=== PATIENT | female | born 1995 | race Caucasian/White ===

== ENCOUNTER 2016-09-07 01:46 | Emergency (ER) | payer BC ==
[~2016-09-07] VITALS: Ht 149.9 cm; Wt 54.5 kg
[2016-09-07 01:50] VITALS: Ht 149.9 cm; Wt 54.5 kg
--- NOTE | 2016-09-07 03:00 | ERA ---
ER Documentation Chief Complaint Date/Time DATE: 09/07/16 TIME: 03:00 Chief Complaint states blood sugar at home 596 about 30 minutes ago HPI The patient is a 21-year-old female, presenting to the ER because of high blood glucose above 596 at home about 30 minutes prior to arrival. She is taking metformin 500 mg twice daily since April. She complains of minimal dizziness , denies headache, neck pain, chest pain, dyspnea. She complains of nausea but no vomiting, denies diarrhea, constipation, minimal urinary discomfort. She does not smoke, drinks socially Past medical history: Diabetes mellitus Past surgical history: None ROS All systems reviewed and are negative except as per history of present illness. Medications Home Meds Reported Medications Metformin* (Glucophage*) 500 Mg Tab, 500 MG PO WITH BREAKFAST DINNE, #30 TAB 09/07/16 Allergies Allergies: Coded Allergies: No Known Drug Allergies (Verified Allergy, Unknown, 09/07/16) PMhx/Soc History of Surgery: No Anesthesia Reaction: No Hx Neurological Disorder: No Hx Respiratory Disorders: No Hx Cardiac Disorders: No Hx Alcohol Use: No Hx Substance Use: No Hx Tobacco Use: No Smoking Status: Never smoker Physical Exam Vitals Vital Signs Date Time Temp Pulse Resp B/P Pulse Ox O2 Delivery O2 Flow Rate FiO2 09/07/16 06:39 98.6 65 20 102/73 100 Room Air 09/07/16 06:00 61 20 104/78 100 Room Air 09/07/16 01:50 98.7 84 20 125/76 99 Physical Exam Const: No acute distress. Head: Atraumatic. Eyes: Normal Conjunctiva. ENT: Normal External Ears, Nose and Mouth. Neck: Full range of motion. No meningismus. Resp: Clear to auscultation bilaterally. Cardio: Regular rate and rhythm. Abd: Soft, non distended, normal bowel sounds, non tender. Skin: No petechiae or rashes. Back: No midline or flank tenderness. Ext: No cyanosis, or edema. Neur: Awake and alert. No focal deficit Psych: Normal Mood and Affect. Result Diagram: 09/07/16 0320 09/07/16 0320 Results 24 hrs Laboratory Tests Test 09/07/16 01:56 09/07/16 03:20 09/07/16 03:32 09/07/16 03:34 Bedside Glucose 366mg/dL 333mg/dL White Blood Count 10.110^3/ul Red Blood Count 4.8210^6/ul Hemoglobin 14.9g/dl Hematocrit 43.7% Mean Corpuscular Volume 90.7fl Mean Corpuscular Hemoglobin 30.9pg Mean Corpuscular Hemoglobin Concent 34.1g/dl Red Cell Distribution Width 11.9% Platelet Count 66069^3/UL Mean Platelet Volume 10.5fl Neutrophils % 64.0% Lymphocytes % 27.1% Monocytes % 7.2% Eosinophils % 1.0% Basophils % 0.3% Nucleated Red Blood Cells % 0.0/100WBC Neutrophils # 6.510^3/ul Lymphocytes # 2.710^3/ul Monocytes # 0.710^3/ul Eosinophils # 0.110^3/ul Basophils # 0.010^3/ul Nucleated Red Blood Cells # 0.010^3/ul Prothrombin Time 12.2Sec Prothrombin Time Ratio 1.0 INR International Normalized Ratio 0.91 Activated Partial Thromboplast Time 25.8Sec Sodium Level 134mmol/L Potassium Level 4.2mmol/L Chloride Level 97mmol/L Carbon Dioxide Level 27mmol/L Anion Gap 14 Blood Urea Nitrogen 13mg/dl Creatinine 0.82mg/dl Glucose Level 383mg/dl Lactic Acid Level 1.2mmol/L Calcium Level 10.3mg/dl Phosphorus Level 5.0mg/dl Magnesium Level 1.7mg/dl Total Bilirubin 0.2mg/dl Direct Bilirubin 0.00mg/dl Indirect Bilirubin 0.2mg/dl Aspartate Amino Transf (AST/SGOT) 18IU/L Alanine Aminotransferase (ALT/SGPT) 31IU/L Alkaline Phosphatase 83IU/L Total Protein 7.9g/dl Albumin 4.9g/dl Globulin 3.00g/dl Albumin/Globulin Ratio 1.63 Lipase 92U/L Bedside Urine pH (LAB) 7.0 Bedside Urine Protein (LAB) Negative Bedside Urine Glucose (UA) 0.50% Bedside Urine Ketones (LAB) Negative Bedside Urine Blood 2+ Bedside Urine Nitrite (LAB) Negative Bedside Urine Leukocyte Esterase (L Negative Test 09/07/16 05:21 Bedside Glucose 248mg/dL Current Medications Medications (Trade) Dose Ordered Sig/Zak Route PRN Reason Start Time Stop Time Status Last Admin Dose Admin Sodium Chloride (NS) 1,690 ml @ 1,690 mls/hr BOLUS X1 ONCE IV 09/07/16 03:30 09/07/16 04:29 DC 09/07/16 03:31 Procedures/MDM MEDICAL MAKING DECISION: The patient is a 31-year-old female, presenting with acute diabetic hyperglycemia. She was treated with normal saline 30 mL/kg IV with good response, glucose improved. The differential diagnoses considered include but are not limited to HHS, DKA, dehydration, medical noncompliance, UTI, pneumonia Departure Diagnosis: Primary Impression: Diabetes mellitus with hyperglycemia Condition: Good Comments I discussed the findings with the patient. I advised the patient to follow-up with the primary physician in about 1-2 days, sooner if needed and return if any concern. RASHMI LONDON MD Sep 07, 2016 03:00
[2016-09-07 03:29] LABS: URINE BLOOD (Dip) POC 2+ (NEGATIVE)
[2016-09-07] MEDS ORDERED: SOD CHLORIDE 0.9% 1,690 ML IV ONE (03:30)
[2016-09-07] MEDS ORDERED: METF500T4 PO (03:41)
[2016-09-07 04:09] LABS: BASOPHILS % 0.3 % (0.0-2.0); EOSINOPHILS # 0.1 10^3/ul (0.0-0.5); HEMATOCRIT 43.7 % (37.0-47.0); HEMOGLOBIN 14.9 g/dl (12.0-16.0); LYMPHOCYTES # 2.7 10^3/ul (0.8-2.9); LYMPHOCYTES % 27.1 % (15.0-51.0); MEAN CORPUSCULAR HEMOGLOBIN 30.9 pg (29.0-33.0); MEAN CORPUSCULAR HGB CONC 34.1 g/dl (32.0-37.0); MEAN CORPUSCULAR VOLUME 90.7 fl (82.0-101.0); MEAN PLATELET VOLUME 10.5 fl (7.4-10.4); MONOCYTE # 0.7 10^3/ul (0.3-0.9); MONOCYTES % 7.2 % (0.0-11.0); NEUTROPHIL # 6.5 10^3/ul (1.6-7.5); PLATELET COUNT 349 10^3/UL (140-415); RED BLOOD COUNT 4.82 10^6/ul (4.20-5.40); RED CELL DISTRIBUTION WIDTH 11.9 % (11.5-14.5); WHITE BLOOD COUNT 10.1 10^3/ul (4.8-10.8)
[2016-09-07 04:11] LABS: ALBUMIN 4.9 g/dl (3.3-4.9); ALBUMIN/GLOBULIN RATIO 1.63; BILIRUBIN,INDIRECT 0.2 mg/dl (0-1.1); BILIRUBIN,TOTAL 0.2 mg/dl (0.2-1.3); CALCIUM 10.3 mg/dl (8.4-10.2); CREATININE 0.82 mg/dl (0.44-1.00); MAGNESIUM 1.7 mg/dl (1.7-2.5); POTASSIUM 4.2 mmol/L (3.5-5.1); TOTAL PROTEIN 7.9 g/dl (6.1-8.1)
[2016-09-07 04:13] LABS: ADD SCAN DIFF NO; INR 0.91; PROTIME 12.2 Sec (12.2-14.2)
[2016-09-07 04:14] LABS: PARTIAL THROMBOPLASTIN TIME 25.8 Sec (25.0-35.0)
[2016-09-07 06:39] VITALS: BP 102/73; PULSE 65; RESP 20; TEMP 98.6
== END 2016-09-07 06:41 | disposition home or self-care (01) ==
LOC: E/R 01:46
DX: E11.65 Type 2 diabetes mellitus with hyperglycemia (principal); Z79.84 Long term (current) use of oral hypoglycemic drugs
CPT/HCPCS: 36415; 80053; 81003; 82962; 83605; 83690; 83735; 84100; 85025; 85610; 85730; 87040; 99284; J7030

== ENCOUNTER 2016-10-29 19:34 | Emergency (ER) | payer BC ==
[~2016-10-29] VITALS: Ht 157.5 cm; Wt 53.5 kg
[~2016-10-29 19:34] MED LIST: METF500T4 PO
[2016-10-29 19:45] VITALS: Ht 157.5 cm; Wt 53.5 kg
[2016-10-29] MEDS ORDERED: SOD CHLORIDE 0.9% 1,000 ML IV ONE (21:00)
[2016-10-29 21:02] LABS: URINE BLOOD (Dip) POC Negative (NEGATIVE)
[2016-10-29 21:15] LABS: BASOPHILS % 0.3 % (0.0-2.0); EOSINOPHILS # 0.1 10^3/ul (0.0-0.5); EOSINOPHILS % 1.2 % (0.0-7.0); HEMATOCRIT 42.4 % (37.0-47.0); HEMOGLOBIN 14.7 g/dl (12.0-16.0); LYMPHOCYTES # 3.7 10^3/ul (0.8-2.9); LYMPHOCYTES % 33.1 % (15.0-51.0); MEAN CORPUSCULAR HEMOGLOBIN 31.3 pg (29.0-33.0); MEAN CORPUSCULAR HGB CONC 34.7 g/dl (32.0-37.0); MEAN CORPUSCULAR VOLUME 90.4 fl (82.0-101.0); MEAN PLATELET VOLUME 10.2 fl (7.4-10.4); MONOCYTE # 0.7 10^3/ul (0.3-0.9); MONOCYTES % 6.4 % (0.0-11.0); NEUTROPHILS % 58.6 % (39.0-77.0); PLATELET COUNT 342 10^3/UL (140-415); RED BLOOD COUNT 4.69 10^6/ul (4.20-5.40); RED CELL DISTRIBUTION WIDTH 11.7 % (11.5-14.5); WHITE BLOOD COUNT 11.3 10^3/ul (4.8-10.8)
[2016-10-29 21:19] LABS: ADD UMIC NO; UR ASCORBIC ACID NEGATIVE (NEGATIVE); UR BILIRUBIN (Dip) NEGATIVE (NEGATIVE); UR BLOOD (Dip) NEGATIVE (NEGATIVE); UR CLARITY CLEAR (CLEAR); UR COLOR STRAW (YELLOW); UR GLUCOSE (Dip) 3+ mg/dL (NEGATIVE); UR KETONES (Dip) TRACE mg/dL (NEGATIVE); UR LEUKOCYTE ESTERASE (Dip) NEGATIVE Leu/ul (NEGATIVE); UR NITRITE (Dip) NEGATIVE (NEGATIVE); UR SPECIFIC GRAVITY (Dip) 1.037 (1.003-1.030); UR TOTAL PROTEIN (Dip) NEGATIVE (NEGATIVE); UR UROBILINOGEN (Dip) NEGATIVE (NEGATIVE)
--- NOTE | 2016-10-29 21:20 | ERD ---
ER Documentation Chief Complaint Date/Time DATE: 10/29/16 TIME: 21:19 Chief Complaint frequency of urination today, [id number] [id number] HPI 21-year-old female presents here in emergency department for complaints of urinary frequency, feeling thirsty, patient has elevated blood sugar home today , 400s, took her medication, glipizide tonight, her blood sugar denies 330 mg per DL, patient denies any abdominal pain. Patient had a vomiting episode after eating today. Patient denies any abdominal pain. Patient denies any flank pain. Patient denies any dysuria. Patient currently takes metformin and glipizide for her diabetes. ROS All systems reviewed and are negative except as per history of present illness. Medications Home Meds Reported Medications Metformin* (Glucophage*) 500 Mg Tab, 500 MG PO WITH BREAKFAST DINNE, #30 TAB 09/07/16 Allergies Allergies: Coded Allergies: No Known Drug Allergies (Verified Allergy, Unknown, 09/07/16) PMhx/Soc Medical and Surgical Hx: pt denies Surgical Hx History of Surgery: No Anesthesia Reaction: No Hx Neurological Disorder: No Hx Respiratory Disorders: No Hx Cardiac Disorders: No Hx Psychiatric Problems: No Hx Miscellaneous Medical Probl: Yes (diabetes type 2, ) Hx Alcohol Use: No Hx Substance Use: No Hx Tobacco Use: No Smoking Status: Never smoker FmHx Family History: No coronary disease, No diabetes, No other Physical Exam Vitals Vital Signs Date Time Temp Pulse Resp B/P Pulse Ox O2 Delivery O2 Flow Rate FiO2 10/29/16 19:45 98.7 86 20 121/88 100 Physical Exam GENERAL: The patient is well developed and appropriate for usual state of health, in no apparent distress. CHEST: Clear to auscultation bilaterally. There are no rales, wheezes or rhonchi. HEART: Regular rate and rhythm. No murmurs, clicks, rubs or gallops. No S3 or S4. ABDOMEN: Soft, nontender and nondistended. Good bowel sounds. No rebound or guarding. No gross peritonitis. No gross organomegaly or masses. No Blunt sign or McBurney point tenderness. BACK: No midline or flank tenderness. EXTREMITIES: Equal pulses bilaterally. There is no peripheral clubbing, cyanosis or edema. No focal swelling or erythema. Full range of motion. Grossly neurovascularly intact. NEURO: Alert and oriented. Cranial nerves 2-12 intact. Motor strength in all 4 extremities with 5/5 strength. Sensation grossly intact. Normal speech and gait. SKIN: There is no apparent rash or petechia. The skin is warm and dry. HEMATOLOGIC AND LYMPHATIC: There is no evidence of excessive bruising or lymphedema. No gross cervical, axillary, or inguinal lymphadenopathy. Result Diagram: 10/29/16205310/29/162053 Results 24 hrs Laboratory Tests Test 10/29/16 19:53 10/29/16 20:54 10/29/16 21:07 Bedside Glucose 330mg/dL White Blood Count 11.310^3/ul Red Blood Count 4.6910^6/ul Hemoglobin 14.7g/dl Hematocrit 42.4% Mean Corpuscular Volume 90.4fl Mean Corpuscular Hemoglobin 31.3pg Mean Corpuscular Hemoglobin Concent 34.7g/dl Red Cell Distribution Width 11.7% Platelet Count 77424^3/UL Mean Platelet Volume 10.2fl Neutrophils % 58.6% Lymphocytes % 33.1% Monocytes % 6.4% Eosinophils % 1.2% Basophils % 0.3% Nucleated Red Blood Cells % 0.0/100WBC Neutrophils # (Manual) 710^3/ul Lymphocytes # 3.710^3/ul Monocytes # 0.710^3/ul Eosinophils # 0.110^3/ul Basophils # 0.010^3/ul Nucleated Red Blood Cells # 0.010^3/ul Urine Color STRAW Urine Clarity CLEAR Urine pH 7.0 Urine Specific [place] 1.037 Urine Ketones TRACEmg/dL Urine Nitrite NEGATIVEmg/dL Urine Bilirubin NEGATIVEmg/dL Urine Urobilinogen NEGATIVEmg/dL Urine Leukocyte Esterase NEGATIVELeu/ul Urine Hemoglobin NEGATIVEmg/dL Urine Glucose 3+mg/dL Urine Total Protein NEGATIVEmg/dl Sodium Level 139mmol/L Potassium Level 3.8mmol/L Chloride Level 93mmol/L Carbon Dioxide Level 30mmol/L Anion Gap 20 Blood Urea Nitrogen 14mg/dl Creatinine 0.60mg/dl Glucose Level 290mg/dl Calcium Level 10.2mg/dl Total Bilirubin 0.1mg/dl Direct Bilirubin 0.00mg/dl Indirect Bilirubin 0.1mg/dl Aspartate Amino Transf (AST/SGOT) 16IU/L Alanine Aminotransferase (ALT/SGPT) 32IU/L Alkaline Phosphatase 78IU/L Total Protein 8.1g/dl Albumin 4.4g/dl Globulin 3.70g/dl Albumin/Globulin Ratio 1.18 Lipase 96U/L Bedside Urine pH (LAB) 7.0 Bedside Urine Protein (LAB) Negative Bedside Urine Glucose (UA) 0.50% Bedside Urine Ketones (LAB) Negative Bedside Urine Blood Negative Bedside Urine Nitrite (LAB) Negative Bedside Urine Leukocyte Esterase (L Negative Current Medications Medications (Trade) Dose Ordered Sig/Zak Route PRN Reason Start Time Stop Time Status Last Admin Dose Admin Sodium Chloride (NS) 1,000 ml @ 1,000 mls/hr Q1H ONCE IV 10/29/16 21:00 10/29/16 21:59 DC 10/29/16 21:06 Normal saline IV bolus was given here in emergency department for rehydration, patient tolerated IV fluids. Procedures/MDM Medical decision making: Patient symptoms was likely is consistent with hyperglycemia. At this time, no symptoms of diabetic ketoacidosis, hyperosmolar hyper ketotic state. No symptoms of any systemic infection. No symptoms of sepsis. No urinary tract infection noted. Patient's diabetic symptoms have stabilized here in the emergency department and appear appropriate for outpatient management.No evidence at this time of diabetic ketoacidosis, hyperosmolar syndrome, or severe systemic infection. Disposition: Home. Stable. She was advised to continue taking her diabetic medications. Patient was advised to follow-up with primary care doctor in 1-2 days for possible adjustment of her diabetic medications, currently on metformin and glipizide. Patient was advised to return to emergency department for severe vomiting, abdominal pain, uncontrolled blood sugars. Otherwise, patient was advised to follow-up with primary care doctor in 1-2 days Departure Diagnosis: Primary Impression: Diabetes mellitus with hyperglycemia Diabetes mellitus type: type 2 Diabetes mellitus custodial insulin use: without custodial use Qualified Code: E11.65 - Type 2 diabetes mellitus with hyperglycemia, without long-term current use of insulin Condition: Stable Patient Instructions: Diabetic Hyperglycemia Additional Instructions: Follow-up with primary care doctor in 1-2 days for adjustment of diabetic medications. TRINY SHIRLEY NP Oct 29, 2016 21:20
[2016-10-29 21:44] LABS: ALBUMIN 4.4 g/dl (3.3-4.9); ALBUMIN/GLOBULIN RATIO 1.18; BILIRUBIN,INDIRECT 0.1 mg/dl (0-1.1); BILIRUBIN,TOTAL 0.1 mg/dl (0.2-1.3); CALCIUM 10.2 mg/dl (8.4-10.2); CREATININE 0.6 mg/dl (0.44-1.00); POTASSIUM 3.8 mmol/L (3.5-5.1); TOTAL PROTEIN 8.1 g/dl (6.1-8.1)
[2016-10-29 22:08] VITALS: BP 115/76; PULSE 74; RESP 14; TEMP 97.8
== END 2016-10-29 22:26 | disposition home or self-care (01) ==
LOC: FTE 19:34
DX: E11.65 Type 2 diabetes mellitus with hyperglycemia (principal); Z79.84 Long term (current) use of oral hypoglycemic drugs
CPT/HCPCS: 36415; 80053; 81003; 82962; 83690; 85025; 99284; J7030

== ENCOUNTER 2017-01-24 01:52 | Emergency (ER) | payer BC ==
[~2017-01-24] VITALS: Ht 149.9 cm; Wt 55.0 kg
[~2017-01-24 01:52] MED LIST changes: +GLIP-95 PO; +GLIP5TAB13 PO; +METF500T PO
[2017-01-24 01:59] VITALS: Ht 149.9 cm; Wt 55.0 kg
--- NOTE | 2017-01-24 02:17 | ERD ---
ER Documentation Chief Complaint Chief Complaint c/o elevated blood sugar. HPI The patient is a 21-year-old female, presenting to the ER because of high blood glucose at home, it was read high on the glucometer. She has presented to the ER multiple times for similar symptoms, she complains of frequent urination, denies fever, chills, syncope, near syncope, neck pain, chest pain, abdominal pain, vomiting. She does not smoke, does illicit drug, drinks socially Past medical history: Diabetes mellitus Past surgical history: None ROS All systems reviewed and are negative except as per history of present illness. Medications Home Meds Reported Medications Metformin* (Glucophage*) 1,000 Mg Tablet, 1000 MG PO WITH BREAKFAST LUNCH, #30 TAB 01/24/17 Glipizide* (Glucotrol*) 5 Mg Tablet, 5 MG PO QID, TAB 01/24/17 Discontinued Reported Medications Glipizide* (Glipizide*) 5 Mg Tablet, 5 MG PO QID, TAB 11/26/16 Metformin* (Glucophage*) 500 Mg Tab, 500 MG PO WITH BREAKFAST DINNE, #30 TAB 09/07/16 Discontinued Scripts Metformin Hcl (Glucophage) 500 Mg Tablet, 500 MG PO WITH BREAKFAST DINNE, #30 TAB Prov:FELIPE ASLVADOR MD 11/26/16 Glipizide* (Glipizide*) 10 Mg Tablet, 10 MG PO BID, #14 TAB Prov:FELIPE SALVADOR MD 11/26/16 Allergies Allergies: Coded Allergies: No Known Drug Allergies (Unverified Allergy, Unknown, 01/24/17) PMhx/Soc History of Surgery: No Anesthesia Reaction: No Hx Neurological Disorder: No Hx Respiratory Disorders: No Hx Cardiac Disorders: No Hx Psychiatric Problems: No Hx Miscellaneous Medical Probl: Yes (diabetes type 2, ) Hx Alcohol Use: No Hx Substance Use: No Hx Tobacco Use: No Physical Exam Vitals Vital Signs Date Time Temp Pulse Resp B/P Pulse Ox O2 Delivery O2 Flow Rate FiO2 01/24/17 01:59 98.8 88 18 114/79 98 Physical Exam Const: No acute distress. Head: Atraumatic. Eyes: Normal Conjunctiva. ENT: Normal External Ears, Nose and Mouth. Neck: Full range of motion. No meningismus. Resp: Clear to auscultation bilaterally. Cardio: Regular rate and rhythm. Abd: Soft, non distended, normal bowel sounds, non tender. Skin: No petechiae or rashes. Back: No midline or flank tenderness. Ext: No cyanosis, or edema. Neur: Awake and alert. No focal deficit Psych: Normal Mood and Affect. Result Diagram: 01/24/17 0230 01/24/17 0230 Results 24 hrs Laboratory Tests Test 01/24/17 02:18 01/24/17 02:24 01/24/17 02:30 01/24/17 02:32 Bedside Urine pH (LAB) 5.5 Bedside Urine Protein (LAB) Negative Bedside Urine Glucose (UA) 0.50% Bedside Urine Ketones (LAB) 2+ Bedside Urine Blood Negative Bedside Urine Nitrite (LAB) Negative Bedside Urine Leukocyte Esterase (L Negative Blood Gas Specimen Source Blood arterial Arterial Blood Date Drawn 01/24/2017 2:30:26 AM Arterial Blood pH (Temp corrected) 7.373 Arterial Blood pCO2 (Temp correct) 42.1mmhg Arterial Blood pO2 (Temp corrected) 77.7mmHG Arterial Blood HCO3 24.0mmol/L Arterial Blood Base Excess -1.3mmol/L Arterial Blood Oxygen Saturation 94.8mmHG Babar Test ACCEPTAB Arterial Blood Gas Puncture Site Left Radial Arterial Blood Carboxyhemoglobin 0.3% Arterial Blood Methemoglobin 0.2% Blood Gas A-a O2 Differential 21.6mmHg Oxyhemoglobin Percent 94.3% Total Hemoglobin 13.7g/dl Blood Gas Temperature 37.0C Blood Gas Modality ROOM AIR FiO2 21.0% Blood Gas Notified Whom UP Blood Gas Notified Time 01/24/2017 2:47:47 AM White Blood Count 11.210^3/ul Red Blood Count 4.3110^6/ul Hemoglobin 13.7g/dl Hematocrit 38.8% Mean Corpuscular Volume 90.0fl Mean Corpuscular Hemoglobin 31.8pg Mean Corpuscular Hemoglobin Concent 35.3g/dl Red Cell Distribution Width 11.5% Platelet Count 59279^3/UL Mean Platelet Volume 10.8fl Neutrophils % 63.2% Lymphocytes % 27.8% Monocytes % 6.4% Eosinophils % 0.8% Basophils % 0.5% Nucleated Red Blood Cells % 0.0/100WBC Neutrophils # 7.110^3/ul Lymphocytes # 3.110^3/ul Monocytes # 0.710^3/ul Eosinophils # 0.110^3/ul Basophils # 0.110^3/ul Nucleated Red Blood Cells # 0.010^3/ul Sodium Level 137mmol/L Potassium Level 4.0mmol/L Chloride Level 102mmol/L Carbon Dioxide Level 23mmol/L Anion Gap 16 Blood Urea Nitrogen 16mg/dl Creatinine 0.50mg/dl Glucose Level 407mg/dl Calcium Level 9.4mg/dl Bedside Glucose 402mg/dL Test 01/24/17 03:37 Bedside Glucose 288mg/dL Current Medications Medications (Trade) Dose Ordered Sig/Zak Route PRN Reason Start Time Stop Time Status Last Admin Dose Admin Sodium Chloride (NS) 1,660 ml ONCE ONCE IV* 01/24/17 02:30 01/24/17 02:31 DC 01/24/17 02:30 Procedures/MDM MEDICAL MAKING DECISION: The patient is a 21-year-old female, presenting with acute diabetic hyperglycemia. ABG on room air, pH 7.37, PCO2 42, PO2 78. She was treated with normosaline 30 mL/kg gram IV for acute diabetic hyperglycemia with good response, blood glucose improved. I do not suspect DKA or infection. The differential diagnoses considered include but are not limited to HHS, DKA, medical noncompliance Departure Diagnosis: Primary Impression: Diabetes mellitus with hyperglycemia Condition: Good Comments I discussed the findings with the patient. I advised the patient to follow-up with the primary physician in about 1-2 days, sooner if needed and return if any concern. Disclaimer: Inadvertent spelling and grammatical errors are likely due to EHR/ dictation software use and do not reflect on the overall quality of patient care. Also, please note that the electronic time recorded on this note does not necessarily reflect the actual time of the patient encounter. RASHMI LONDON MD Jan 24, 2017 02:17
[2017-01-24 02:19] LABS: URINE BLOOD (Dip) POC Negative (NEGATIVE)
[2017-01-24] MEDS ORDERED: SODIUM CHLORIDE 0.9% 1L BAG IV* ONE (02:30)
[2017-01-24] MEDS ORDERED: GLIP5TAB82 PO (02:55)
[2017-01-24] MEDS ORDERED: MTF1000T PO (03:03)
[2017-01-24 03:17] LABS: BASOPHIL # 0.1 10^3/ul (0.0-0.1); BASOPHILS % 0.5 % (0.0-2.0); EOSINOPHILS # 0.1 10^3/ul (0.0-0.5); EOSINOPHILS % 0.8 % (0.0-7.0); HEMATOCRIT 38.8 % (37.0-47.0); HEMOGLOBIN 13.7 g/dl (12.0-16.0); LYMPHOCYTES # 3.1 10^3/ul (0.8-2.9); LYMPHOCYTES % 27.8 % (15.0-51.0); MEAN CORPUSCULAR HEMOGLOBIN 31.8 pg (29.0-33.0); MEAN CORPUSCULAR HGB CONC 35.3 g/dl (32.0-37.0); MEAN PLATELET VOLUME 10.8 fl (7.4-10.4); MONOCYTE # 0.7 10^3/ul (0.3-0.9); MONOCYTES % 6.4 % (0.0-11.0); NEUTROPHIL # 7.1 10^3/ul (1.6-7.5); NEUTROPHILS % 63.2 % (39.0-77.0); PLATELET COUNT 307 10^3/UL (140-415); RED BLOOD COUNT 4.31 10^6/ul (4.20-5.40); RED CELL DISTRIBUTION WIDTH 11.5 % (11.5-14.5); WHITE BLOOD COUNT 11.2 10^3/ul (4.8-10.8)
[2017-01-24 03:34] LABS: CALCIUM 9.4 mg/dl (8.4-10.2); CREATININE 0.5 mg/dl (0.44-1.00)
[2017-01-24 03:37] LABS: AADO2 Arterial 21.6 mmHg (7.0-24.0); Allen Test ACCEPTAB; Arterial Base Excess -1.3 mmol/L (-3.0-3); Arterial COHb 0.3 % (0.0-3.0); Arterial Fraction of Oxyhgb 94.3 % (93.0-99.0); Arterial MetHb 0.2 % (0.0-1.5); Arterial Total Hemglobin 13.7 g/dl (12.0-18.0); MODE ROOM AIR
[2017-01-24 05:11] VITALS: BP 102/64; PULSE 90; RESP 16
== END 2017-01-24 05:12 | disposition home or self-care (01) ==
LOC: E/R 01:52
DX: E11.65 Type 2 diabetes mellitus with hyperglycemia (principal); Z79.84 Long term (current) use of oral hypoglycemic drugs
CPT/HCPCS: 36415; 36600; 80048; 81003; 82803; 82962; 85025; 99284; J7030

== ENCOUNTER 2017-01-24 18:07 | Emergency (ER) | payer BC ==
[~2017-01-24] VITALS: Ht 149.9 cm; Wt 55.0 kg
[~2017-01-24 18:07] MED LIST changes: +GLIP5TAB82 PO; +MTF1000T PO
[2017-01-24 18:40] VITALS: Ht 149.9 cm; Wt 55.0 kg
[2017-01-24] MEDS ORDERED: SOD CHLORIDE 0.9% 1,000 ML IV STA (18:55)
--- NOTE | 2017-01-24 18:58 | ERD ---
ER Documentation Chief Complaint Chief Complaint states blood sugar at home 410 x 1 hour ago, was here earlier today for [facility] HPI This is a 21-year-old female with a past medical history of poorly controlled diabetes who is presenting with an episode of hyperglycemia. The patient was reportedly here this morning with an episode of blood sugar over 400. She was evaluated and ultimately discharged. She returns again now because she checked her blood sugar this evening and found it to again be elevated over 400. The patient does report intermittent mild nausea. She also reports some mild abdominal discomfort. The patient denies feeling sick recently. The patient denies fever or chills. The patient has had no headache or vision changes. The patient does not endorse neck or back pain. The patient denies lightheadedness or dizziness. The patient has had no chest pain or shortness of breath or trouble breathing. The patient denies vomiting. The patient denies changes to bowel movements or urination. She does endorse chronic polyphagia and polyuria. The patient has had no focal deficits. The patient has had no weakness or numbness or tingling to the face or extremities. ROS All systems reviewed and are negative except as per history of present illness. Medications Home Meds Reported Medications Metformin* (Glucophage*) 1,000 Mg Tablet, 1000 MG PO WITH BREAKFAST LUNCH, #30 TAB 01/24/17 Glipizide* (Glucotrol*) 5 Mg Tablet, 5 MG PO QID, TAB 01/24/17 Discontinued Reported Medications Glipizide* (Glipizide*) 5 Mg Tablet, 5 MG PO QID, TAB 11/26/16 Metformin* (Glucophage*) 500 Mg Tab, 500 MG PO WITH BREAKFAST DINNE, #30 TAB 09/07/16 Discontinued Scripts Metformin Hcl (Glucophage) 500 Mg Tablet, 500 MG PO WITH BREAKFAST DINNE, #30 TAB Prov:FELIPE SALVADOR MD 11/26/16 Glipizide* (Glipizide*) 10 Mg Tablet, 10 MG PO BID, #14 TAB Prov:FELIPE SALVADOR MD 11/26/16 Allergies Allergies: Coded Allergies: No Known Drug Allergies (Unverified Allergy, Unknown, 01/24/17) PMhx/Soc History of Surgery: No Anesthesia Reaction: No Hx Neurological Disorder: No Hx Respiratory Disorders: No Hx Cardiac Disorders: No Hx Psychiatric Problems: No Hx Miscellaneous Medical Probl: Yes (diabetes type 2, ) Hx Alcohol Use: No Hx Substance Use: No Hx Tobacco Use: No FmHx Family History: diabetes Physical Exam Vitals Vital Signs Date Time Temp Pulse Resp B/P Pulse Ox O2 Delivery O2 Flow Rate FiO2 01/24/17 19:35 98.4 86 20 117/70 99 Room Air 01/24/17 18:40 98.4 94 20 117/70 99 Physical Exam Const: No apparent distress, well-developed, well-nourished Head: Normocephalic, Atraumatic Eyes: Normal Conjunctiva. Extraocular movements intact. Pupils equal, round and reactive to light ENT: Normal External Ears, Nose and Mouth. Neck: Full range of motion. No meningismus. Resp: Clear to auscultation bilaterally, No wheezes, rales or rhonchi Cardio: Regular rate and rhythm. No murmurs, rubs or gallops Abd: Soft, non tender, non distended. Normal bowel sounds Skin: No petechiae or rashes Back: No midline tenderness. No CVA tenderness Ext: No cyanosis, or edema Neur: Awake and alert, oriented 4. Cranial nerves intact. No facial droop. Normal strength, sensation and coordination. Psych: Normal Mood and Affect Result Diagram: 01/24/17192401/24/171924 Results 24 hrs Laboratory Tests Test 01/24/17 18:43 01/24/17 19:15 01/24/17 19:25 01/24/17 22:15 Bedside Glucose 312mg/dL 288mg/dL 229mg/dL White Blood Count 11.210^3/ul Red Blood Count 4.6310^6/ul Hemoglobin 14.5g/dl Hematocrit 41.7% Mean Corpuscular Volume 90.1fl Mean Corpuscular Hemoglobin 31.3pg Mean Corpuscular Hemoglobin Concent 34.8g/dl Red Cell Distribution Width 11.8% Platelet Count 11572^3/UL Mean Platelet Volume 10.4fl Neutrophils % 60.0% Lymphocytes % 31.9% Monocytes % 5.7% Eosinophils % 1.0% Basophils % 0.4% Nucleated Red Blood Cells % 0.0/100WBC Neutrophils # 6.710^3/ul Lymphocytes # 3.610^3/ul Monocytes # 0.610^3/ul Eosinophils # 0.110^3/ul Basophils # 0.110^3/ul Nucleated Red Blood Cells # 0.010^3/ul Urine Color STRAW Urine Clarity CLEAR Urine pH 6.0 Urine Specific [place] 1.030 Urine Ketones 1+mg/dL Urine Nitrite NEGATIVEmg/dL Urine Bilirubin NEGATIVEmg/dL Urine Urobilinogen NEGATIVEmg/dL Urine Leukocyte Esterase NEGATIVELeu/ul Urine Hemoglobin NEGATIVEmg/dL Urine Glucose 3+mg/dL Urine Total Protein NEGATIVEmg/dl Sodium Level 137mmol/L Potassium Level 4.3mmol/L Chloride Level 100mmol/L Carbon Dioxide Level 23mmol/L Anion Gap 18 Blood Urea Nitrogen 14mg/dl Creatinine 0.65mg/dl Glucose Level 316mg/dl Calcium Level 9.6mg/dl Lipase 107U/L Current Medications Medications (Trade) Dose Ordered Sig/Zak Route PRN Reason Start Time Stop Time Status Last Admin Dose Admin Sodium Chloride (NS) 1,000 ml @ 1,000 mls/hr Q1H STAT IV 01/24/17 18:55 01/24/17 19:54 DC 01/24/17 19:49 Procedures/MDM MDM The patient's presentation warrants further investigation. LABS The patient's blood work was obtained and reviewed. The patient's CBC shows mild leukocytosis and no left shift. The patient is afebrile and does not appear systemically ill. I do not suspect a systemic infection. The patient is not anemic today. The patient's platelet count is unremarkable. The patient's BMP shows no signs of metabolic or electrolyte emergencies. The patient has unremarkable renal function testing. The patient does have a mild anion gap 14, but her CO2 is normal, unlikely to be in DKA at this time. Her blood sugar is mildly elevated at 316. The patient's urinalysis does show 1+ ketones and glucose. Lipase is within normal limits. TREATMENT/DISPOSITION The patient is hyperglycemic secondary to her diabetes. I have low suspicion for DKA given her overall well-appearing presentation. The patient was given 1 L of IV fluids in the emergency department and her blood sugar came down to 216. It is important that the patient follow-up with her primary care physician or greeter guest services for tighter control of her diabetes. She is already on high doses of metformin as well as glipizide. She may require insulin. At this time, the patient is well-appearing with normal vital signs and I feel that the patient stable for discharge. The patient will need follow-up with his primary care physician in 2-3 days. The patient will be given strict precautions with which to return to the emergency department. Disclaimer: Inadvertent spelling and grammatical errors are likely due to EHR/ dictation software use and do not reflect on the overall quality of patient care. Note that the electronic time recorded on this note does not necessarily reflect the actual time of the patient encounter. Departure Diagnosis: Primary Impression: Hyperglycemia Additional Impression: Type 2 diabetes mellitus Diabetes mellitus complication status: with hyperglycemia Diabetes mellitus termite control servicer insulin use: without termite control servicer use Qualified Code: E11.65 - Type 2 diabetes mellitus with hyperglycemia, without long-term current use of insulin Condition: NOE Go MD Jan 24, 2017 18:58 Disclaimer: Inadvertent spelling and grammatical errors are likely due to EHR/ dictation software use and do not reflect on the overall quality of patient care. Note that the electronic time recorded on this note does not necessarily reflect the actual time of the patient encounter. Departure Diagnosis: Primary Impression: Hyperglycemia Condition: NOE Go MD Jan 24, 2017 18:58
[2017-01-24 19:35] VITALS: BP 117/70; PULSE 86; RESP 20; TEMP 98.4
[2017-01-24 19:48] LABS: ADD UMIC NO; UR ASCORBIC ACID NEGATIVE (NEGATIVE); UR BILIRUBIN (Dip) NEGATIVE (NEGATIVE); UR BLOOD (Dip) NEGATIVE (NEGATIVE); UR CLARITY CLEAR (CLEAR); UR COLOR STRAW (YELLOW); UR GLUCOSE (Dip) 3+ mg/dL (NEGATIVE); UR KETONES (Dip) 1+ mg/dL (NEGATIVE); UR LEUKOCYTE ESTERASE (Dip) NEGATIVE Leu/ul (NEGATIVE); UR NITRITE (Dip) NEGATIVE (NEGATIVE); UR TOTAL PROTEIN (Dip) NEGATIVE (NEGATIVE); UR UROBILINOGEN (Dip) NEGATIVE (NEGATIVE)
[2017-01-24 19:49] LABS: BASOPHIL # 0.1 10^3/ul (0.0-0.1); BASOPHILS % 0.4 % (0.0-2.0); EOSINOPHILS # 0.1 10^3/ul (0.0-0.5); HEMATOCRIT 41.7 % (37.0-47.0); HEMOGLOBIN 14.5 g/dl (12.0-16.0); LYMPHOCYTES # 3.6 10^3/ul (0.8-2.9); LYMPHOCYTES % 31.9 % (15.0-51.0); MEAN CORPUSCULAR HEMOGLOBIN 31.3 pg (29.0-33.0); MEAN CORPUSCULAR HGB CONC 34.8 g/dl (32.0-37.0); MEAN CORPUSCULAR VOLUME 90.1 fl (82.0-101.0); MEAN PLATELET VOLUME 10.4 fl (7.4-10.4); MONOCYTE # 0.6 10^3/ul (0.3-0.9); MONOCYTES % 5.7 % (0.0-11.0); NEUTROPHIL # 6.7 10^3/ul (1.6-7.5); PLATELET COUNT 313 10^3/UL (140-415); RED BLOOD COUNT 4.63 10^6/ul (4.20-5.40); RED CELL DISTRIBUTION WIDTH 11.8 % (11.5-14.5); WHITE BLOOD COUNT 11.2 10^3/ul (4.8-10.8)
[2017-01-24 20:14] LABS: CALCIUM 9.6 mg/dl (8.4-10.2); CREATININE 0.65 mg/dl (0.44-1.00); POTASSIUM 4.3 mmol/L (3.5-5.1)
== END 2017-01-24 23:33 | disposition home or self-care (01) ==
LOC: E/R 18:07
DX: E11.65 Type 2 diabetes mellitus with hyperglycemia (principal); Z79.84 Long term (current) use of oral hypoglycemic drugs
CPT/HCPCS: 36415; 80048; 81003; 82962; 83690; 85025; 99284; J7030

== ENCOUNTER 2019-01-12 17:42 | Emergency (ER) | payer BC ==
[~2019-01-12] VITALS: Wt 65.0 kg
[~2019-01-12 17:42] MED LIST changes: -GLIP-95 PO; -GLIP5TAB13 PO; +GLIP5TAB3 PO; -GLIP5TAB82 PO; -METF500T PO; -METF500T4 PO
[2019-01-12] MEDS ORDERED: SOD CHLORIDE 0.9% 1,000 ML IV STA (19:53)
[2019-01-12] MEDS ORDERED: ONDANSETRON 4 MG INJ IV STA (20:17)
[2019-01-12 21:52] VITALS: BP 106/75; PULSE 68; RESP 16
== END 2019-01-12 21:52 | disposition home or self-care (01) ==
LOC: E/R 17:42
DX: R11.10 Vomiting, unspecified (principal); R19.7 Diarrhea, unspecified; E11.9 Type 2 diabetes mellitus without complications; Z79.84 Long term (current) use of oral hypoglycemic drugs
CPT/HCPCS: 36415; 80053; 81003; 81025; 82962; 83690; 85025; 96374; 99284; J7030